=== PATIENT | male | born 1995 | race Caucasian/White ===

== ENCOUNTER 2017-06-09 23:01 | Emergency (ER) | payer OTHER ==
[~2017-06-09] VITALS: Ht 190.5 cm; Wt 77.1 kg
[~2017-06-09 23:01] MED LIST: ADDERALL 20 MG20 MG PO; CLONIDINE0.1 PO; IBUPROFEN 800800 M1 PO; NAPROSYN500 MG PO; VALIUM5 MG PO
[2017-06-09 23:27] LABS: ABSOLUTE EOSINOPHILS 0.2 thou/uL (0.0-0.7); ABSOLUTE LYMPHOCYTES 3.3 thou/uL (0.8-5.3); ABSOLUTE MONOCYTES 0.4 thou/uL (0.0-1.2); ABSOLUTE NEUTROPHILS 2.9 thou/uL (1.6-8.1); BASOPHILS 0.4 %; EOSINOPHILS 3.4 %; HEMOGLOBIN 13.9 gm/dL (14.0-18.0); LYMPHOCYTES 48.2 %; MCH 28.9 pg (26.0-34.0); MCHC 33.9 g/dL (28.0-37.0); MCV 85.2 fL (80.0-100.0); MPV 8.7 fl. (7.2-11.1); NUCLEATED RBCS 0 /100WBC; PLATELET COUNT* 316 thou/uL (150-400); RBC 4.81 mil/uL (4.50-6.00); RDW-CV 13.1 % (10.5-14.5); WBC 6.9 thou/uL (4.0-11.0)
[2017-06-09 23:40] LABS: CALCIUM 9.4 mg/dL (8.5-10.1); CREATININE 0.9 mg/dL (0.6-1.3); POTASSIUM 3.5 mmol/L (3.5-5.1)
[2017-06-09 23:44] LABS: ALBUMIN 4.1 g/dL (3.4-5.0); TOTAL BILIRUBIN 0.3 mg/dL (<0.1-1.0); TOTAL PROTEIN 7.9 g/dL (6.4-8.2)
[2017-06-10 00:12] LABS: URINE BILIRUBIN NEGATIVE (Negative); URINE BLOOD NEGATIVE (Negative); URINE CLARITY CLEAR; URINE COLOR YELLOW; URINE GLUCOSE-RANDOM NEGATIVE (Negative); URINE KETONES NEGATIVE (Negative); URINE LEUKOCYTES-REFLEX NEGATIVE (Negative); URINE NITRITE-REFLEX NEGATIVE (Negative); URINE PROTEIN NEGATIVE (Negative); URINE UROBILINOGEN 0.2 E.U./dl (0.2-1.0)
[2017-06-10] MEDS ORDERED: PROTONIX40 M2 PO (00:20)
[2017-06-10] MEDS ORDERED: CARAFATE 1 GM TA1 G1 PO (00:20)
[2017-06-10 00:38] VITALS: BP 121/67
== END 2017-06-10 00:38 | disposition home or self-care (01) ==
LOC: M.ERS 23:01
PROVIDERS: Emergency Medicine Emergency Medical Services
DX: R11.2 Nausea with vomiting, unspecified (principal); F90.9 Attention-deficit hyperactivity disorder, unspecified type; F41.9 Anxiety disorder, unspecified; F25.9 Schizoaffective disorder, unspecified; F12.20 Cannabis dependence, uncomplicated; Z88.2 Allergy status to sulfonamides

== ENCOUNTER 2017-11-10 10:19 | Emergency (ER) | payer OTHER ==
[~2017-11-10] VITALS: Ht 182.9 cm; Wt 83.9 kg
[~2017-11-10 10:19] MED LIST changes: +CARAFATE 1 GM TA1 G1 PO; +PROTONIX40 M2 PO
[2017-11-10] MEDS ORDERED: VALIUM5 MG PO (10:32)
[2017-11-10 10:56] LABS: ABSOLUTE BASOPHILS 0.1 thou/uL (0.0-0.2); ABSOLUTE EOSINOPHILS 0.3 thou/uL (0.0-0.7); ABSOLUTE LYMPHOCYTES 2.1 thou/uL (0.8-5.3); ABSOLUTE MONOCYTES 0.3 thou/uL (0.0-1.2); ABSOLUTE NEUTROPHILS 2.3 thou/uL (1.6-8.1); BASOPHILS 1.5 %; EOSINOPHILS 5.3 %; HEMATOCRIT 42.9 % (42.0-52.0); HEMOGLOBIN 14.4 gm/dL (14.0-18.0); LYMPHOCYTES 42.1 %; MCH 29.3 pg (26.0-34.0); MCHC 33.5 g/dL (28.0-37.0); MCV 87.6 fL (80.0-100.0); MONOCYTES 6.8 %; MPV 10.2 fl. (7.2-11.1); NUCLEATED RBCS 0 /100WBC; PLATELET COUNT* 285 thou/uL (150-400); POLYS 44.3 %; RDW-CV 13.4 % (10.5-14.5); WBC 5.1 thou/uL (4.0-11.0)
[2017-11-10 11:56] LABS: ALBUMIN 3.4 g/dL (3.4-5.0); CALCIUM 7.9 mg/dL (8.5-10.1); POTASSIUM 3.8 mmol/L (3.5-5.1); TOTAL BILIRUBIN 0.3 mg/dL (<0.1-1.0); TOTAL PROTEIN 6.6 g/dL (6.4-8.2)
[2017-11-10] MEDS ORDERED: PROTONIX40 M1 PO (12:05)
[2017-11-10] MEDS ORDERED: CARAFATE1 GM PO (12:05)
[2017-11-10] MEDS ORDERED: ONDANSETRON HCL4 M2 PO (12:05)
[2017-11-10 12:15] VITALS: BP 123/76
== END 2017-11-10 12:16 | disposition home or self-care (01) ==
LOC: M.ERS 10:19
PROVIDERS: Nurse Practitioner Family
DX: K29.20 Alcoholic gastritis without bleeding (principal); F41.9 Anxiety disorder, unspecified; F25.9 Schizoaffective disorder, unspecified; Z88.2 Allergy status to sulfonamides